=== PATIENT | female | born 1965 | race Caucasian/White ===

== ENCOUNTER 2018-09-06 11:00 | Emergency (ER) | payer MEDICAID, SELFPAY ==
[2018-09-06 11:02] VITALS: BP 117/76; PULSE 68; RESP 18; TEMP 37.5; O2SAT 95; BMI 28.1
--- NOTE | 2018-09-06 11:40 | EKG12_ITS ---
Test Reason : SYNCOPE Blood Pressure : / mmHG Vent. Rate : 073 BPM Atrial Rate : 073 BPM P-R Int : 158 ms QRS Dur : 096 ms QT Int : 422 ms P-R-T Axes : 072 -52 051 degrees QTc Int : 464 ms Normal sinus rhythm Left anterior fascicular block Abnormal ECG Confirmed by BALDOMERO CARR, JOSE ALEJANDRO ([id number]), movie editor ASHELY CASANOVA ([id number] on 09/08/2018 2:12:12 PM Referred By: Confirmed By:JOSE ALEJANDRO ALEXANDRE MD
[2018-09-06] MEDS: Ondansetron 4 MG/2 ML Vial IV (11:59)
[2018-09-06 12:09] LABS: Absolute Lymphocyte Count 0.74 X10^3/ul (0.83-4.51); Absolute Neutrophil Count 1.9 X10^3/uL (2.0-7.7); Basophil# 0.01 X10^3/uL; Basophil% 0.3 % (0-1); Eosinophil# 0.02 X10^3/uL; Eosinophils% 0.6 % (0-5); Hematocrit 40.5 % (37-47); Hemoglobin 13.3 g/dl (12.0-15.0); Lymphocyte # 0.74 X10^3/ul (4.0); Mean Corp Hgb Conc 32.8 g/gl (32-36); Mean Corpuscular Hgb 32.4 pg (27.0-32.0); Mean Corpuscular Volume 98.8 fL (81-99); Mean Platelet Vol. 9.7 fl (6.2-12.0); Monocyte# 0.57 X10^3/uL; Monocyte% 17.7 % (0-10); Neutrophil # 1.88 X10^3/uL (2.7-7.7); Neutrophil % 58.4 % (47-70); POSITIVE COUNT NO; POSITIVE DIFFERENTIAL NO; POSITIVE MORPHOLOGY NO; Platelet Count 138 K/mm3 (150-450); RBC Distribution Width SD 50.3 fl (35.1-43.9); White Blood Count 3.2 K/mm3 (4.4-11.0)
--- NOTE | 2018-09-06 12:16 | RAD_ITS ---
STUDY: X-RAY CHEST REASON FOR EXAM: Female, 53 years old. Syncope with shortness of breath TECHNIQUE: PA and lateral views of the chest. COMPARISON: None. FINDINGS: EKG leads project over the chest. The lungs are clear and expanded. There is no demonstrated pleural abnormality. Normal size heart. Normal mediastinum and jamarcus. Normal visualized pulmonary arteries. Normal visualized aortic arch and descending thoracic aorta. Normal visualized thoracic spine. Normal visualized ribs, clavicles, and shoulders. There is no demonstrated abnormality of the visualized soft tissue structures of the upper abdomen. RAD/Chest PA and Lateral IMPRESSION: Normal x-ray examination of the chest. Electronically Signed: Rah Leal MD at 12:52 EST , Service support ,
[2018-09-06 12:29] LABS: Anion Gap 6 (5-15); BUN 16 mg/dL (7-18); Calcium,Total 8.3 mg/dL (8.5-10.1); Chloride 104 mmol/L (98-107); Creatinine, Serum 1.14 mg/dL (0.55-1.02); EST Glomerular Filtration Rate 53 mL/min (>60); Est Glom Filt Rate - Afr Amer 64 mL/min (>60); Glucose 120 mg/dL (74-106); Potassium 3.5 mmol/L (3.5-5.1); Sodium Level 135 mmol/L (136-145)
--- NOTE | 2018-09-06 12:59 | ED.DCSUM_ITS ---
- ER Visit Summary Date of Service: 09/06/18 Chief Complaint: Possible syncope History of Present Illness: The patient is a 53 F who states that on Saturday of this week she was playing with a child who had strep throat. Later that night she developed a cough and has had cough most nights since. She states that she thinks he had a fever but did not take it. She is currently homeless and staying at [facility]. She does note an episode of vomiting and diarrhea today. She states that she felt very woozy after opening some blinds and she sat down she is unsure she fell asleep because she has not been sleeping well because of the cough or she passed out. When she woke up this is when the vomiting happened. When asked specifically how much she vomited she states she more dry heaves and had this 1 episode of diarrhea. She states that she feels very dehydrated and would like some saline. She is also requesting salmon and green beans. Physical Examination: Afebrile vital signs are stable Gen: Well-nourished well-developed Head: Normocephalic atraumatic Eyes: Perrl EOMI ENT: TMs clear no rhinorrhea moist mucous membranes Neck: Supple no lymphadenopathy no JVD nontender CVS: Regular rate rhythm no murmurs normal S1-S2 Respiratory: No distress clear to auscultation bilaterally chest nontender Abdomen: Soft nontender nondistended normal bowel sounds no masses Back: Nontender Extremity: Nontender no edema Skin: Normal color no rash Neuro: alert orientated ?3 CN II-XII intact normal strength sensation reflexes gait cerebellar Psych: Normal affect normal mood Test Results: EKG shows a sinus rhythm at a rate of 73. CBC the white count 3.2 creatinine 1.14 and troponin less than 0.015 chest x-ray is negative. Flu swab is positive for influenza A. Emergency Department Course and Treatment: Patient has a resting heart rate of 68 is normotensive. I do not see a need for IV hydration. She has no pneumonia. She will be discharged home with supportive care. She has no risk factors at this time for complications of influenza. I do not have salmon in and green beans so we will provide her with a turkey sandwich Impression: 1. Influenza A This note was generated with [employer] dictation software. It may contain incorrect words, spelling, and punctuation that were not noted in review of the chart prior to signing ED Disposition - Plan for ED Patient: Disposition: Home or Assisted Living Instructions: ED Flu Prescriptions: Ondansetron [Zofran Odt] 4 mg PO Q8H PRN PRN #10 tab PRN Reason: Nausea Ibuprofen [Motrin] 800 mg PO TID PRN PRN #20 tab PRN Reason: Fever Referrals: Jennifer Poe [NON-STAFF] - 1 Week if not improving
[2018-09-06 13:27] VITALS: BP 114/72; PULSE 69; RESP 12; O2SAT 93
--- NOTE | 2018-09-06 13:37 | ED.RN ---
[facility] star coming for pt
== END 2018-09-06 13:37 | disposition home or self-care (01) ==
PROVIDERS: Emergency Provider Emergency Medicine
DX: J09.X2 Influenza due to identified novel influenza A virus with other respiratory manifestations (principal); Z59.0 Homelessness
CPT/HCPCS: 71046; 80048; 84484; 85025; 87804; 93005; 96374; 99285; A4216; J2405